=== PATIENT | female | born 1940 | race Caucasian/White ===

== ENCOUNTER 2021-04-03 13:23 | Emergency (ER) | payer MEDICARE ==
[~2021-04-03] VITALS: Ht 157.5 cm; Wt 62.8 kg
[2021-04-03] MEDS ORDERED: MORPHINE SULFATE 4 MG/ML INJ. IV/SQ PRN (14:00)
[2021-04-03] MEDS ORDERED: IV NORMAL SALINE 1000ML BAG 1,000 ML IV SCH (14:00)
--- NOTE | 2021-04-03 14:12 | PHYS DOC ---
General Adult EDM: Chief Complaint: MECHANICAL FALL HPI: HPI: Patient is a 80-year-old female who presents after syncopal episode at home. Patient states that she was using a push mower to mow her grass. Patient states that she started to feel tired so she started to walk into the house to rest. Patient states she was trying to open up her garage door and the next thing she remembers she woke up next to her garage. Patient has an abrasion to the right side of her forehead, right cheek, and also complaining of right-sided chest wall pain. Chest wall pain is worse with sitting up. Denies pain on inspiration. Patient states that she has had episodes of dizziness in the past but never had a syncopal episode. Denies chest pain, shortness of breath, dizziness. Denies back or neck pain. Patient's only medical history is hypertension. Unknown last tetanus. Patient is fully vaccinated for COVID-19. Review of Systems: Review of Systems: ROS At least 10 ROS systems have been reviewed and are negative except as documented in the HPI. General: Negative except as outlined in HPI above. Skin: Negative except as outlined in HPI above. HEENT: Negative except as outlined in HPI above. Neck: Negative except as outlined in HPI above. Respiratory: Negative except as outlined in HPI above.. Cardiovascular: Negative except as outlined in HPI above. Abdomen: Negative except as outlined in HPI above. : Negative except as outlined in HPI above. Back/MSK: Negative except as outlined in HPI above. Neuro: Negative except as outlined in HPI above. Psych: Negative except as outlined in HPI above. Heart Score: C/O Chest Pain: No Risk Factors: Risk Factors: DM, Current or recent (<one month) smoker, HTN, HLP, family history of CAD, obesity. Risk Scores: Score 0 - 3: 2.5% MACE over next 6 weeks - Discharge Home Score 4 - 6: 20.3% MACE over next 6 weeks - Admit for Clinical Observation Score 7 - 10: 72.7% MACE over next 6 weeks - Early Invasive Strategies Current Medications: Current Medications Medications (Trade) Dose Ordered Sig/Han Start Time Stop Time Status Last Admin Dose Admin Sodium Chloride 1,000 ml @ 1,000 mls/hr Q1H 04/03/21 14:00 04/03/21 14:59 UNV Physical Exam: PE: Constitutional: Well developed, well nourished, no acute distress, non-toxic appearance. [] HENT: Normocephalic, atraumatic, bilateral external ears normal, oropharynx moist, no oral exudates, nose normal. [] Eyes: PERRLA, EOMI, conjunctiva normal, no discharge. [] Neck: Normal range of motion, no tenderness, supple, no stridor. [] Cardiovascular:Heart rate regular rhythm, no murmur [] Lungs & Thorax: Bilateral breath sounds clear to auscultation [] Abdomen: Bowel sounds normal, soft, no tenderness, no masses, no pulsatile masses. [] Skin: Small abrasion to right forehead, right cheek Back: No tenderness, no CVA tenderness. [] Extremities: No tenderness, no cyanosis, no clubbing, ROM intact, no edema. [] Neurologic: Alert and oriented X 3, normal motor function, normal sensory function, no focal deficits noted. [] Psychologic: Affect normal, judgement normal, mood normal. [] EKG: EKG: Sinus rhythm. Heart rate 81 bpm. No STEMI. Read by Dr. Duong at 1344. [] Radiology/Procedures: Radiology/Procedures: []STUDY: CT head and cervical spine without contrast INDICATION: Syncope. Right-sided rib pain. COMPARISON: None. TECHNIQUE: Axial CT imaging through the head and cervical spine without the use of intravenous contrast. Sagittal and coronal reformats were obtained. One or more of the following individualized dose reduction techniques were utilized for this examination: 1. Automated exposure control 2. Adjustment of the mA and/or kV according to patient size 3. Use of iterative reconstruction technique. FINDINGS: CT head: No acute intracranial hemorrhage. No localized mass effect, midline shift or hydrocephalus. Coley-white matter differentiation is maintained. Patchy hypoattenuation within the bihemispheric subcortical/periventricular white matter which is nonspecific but most frequently related to chronic microvascular ischemic change. Brain volume is within normal limits considering patient age. No depressed calvarial fracture. Normally aerated mastoid air cells and partially imaged paranasal sinuses. CT cervical spine: Osteopenia. No acute fracture or traumatic malalignment. Multilevel, multifactorial spondylosis on a background of straightening of cervical lordosis and mild reversal centered at C4. Mild to moderate osseous neural foraminal stenosis greatest on the right at C4-C5. Central canal stenosis favored greatest at C5-C6 and estimated at moderate in severity. No paraspinous hematoma. Unremarkable thyroid. Mild scattered calcific atherosclerosis. No apical pneumothorax. IMPRESSION: CT head: 1. No acute intracranial abnormality by CT. 2. Chronic/senescent observations detailed above. CT cervical spine: 1. No acute fracture or traumatic malalignment. 2. Multifactorial spondylosis collectively greatest at C4-C5 and C5-C6, as above. T scan of the chest, abdomen and pelvis with contrast 04/03/2021 CLINICAL HISTORY: Syncopal episode. Fall. Right-sided chest and abdominal pain. TECHNIQUE: After the intravenous administration of 75 cc of Omnipaque 300 only , contiguous, 5 mm axial sections were obtained through the chest, abdomen and pelvis. One or more of the following individualized dose reduction techniques were utilized for this study: 1. Automated exposure control. 2. Adjustment of the mA and/or kV according to patient size. 3. Use of iterative reconstruction technique. FINDINGS: The heart is mildly enlarged. Atherosclerotic calcification of the thoracic aorta is seen. The thoracic aorta is mildly tortuous but tapers normally. Minimal dependent subsegmental atelectasis is seen involving both lungs. A 2.6 cm bulla is seen involving the medial aspect of the right lower lobe. No area of consolidation is seen. No pneumothorax or pleural effusion is noted. The liver parenchyma has a decreased attenuation consistent with fatty infiltr ation. No focal abnormality of liver is seen. The spleen, pancreas, adrenal glands and kidneys are within normal limits. Atherosclerotic calcification abdominal aorta is seen. The abdominal aorta tapers normally. The gallbladder is well-distended. No free fluid or free air is seen within the abdomen. There is no evidence of bowel obstruction. The appendix is well-visualized and is within normal limits. Images through the pelvis demonstrate the urinary bladder distended with urine. Multiple diverticula are seen involving the sigmoid colon. No inflammatory changes are seen adjacent fat. No free fluid is seen. No pelvic hematoma is n oted. Mild S-shaped curvature of the thoracolumbar spine is seen. Degenerative changes are seen involving the thoracic and lumbar spine along with both shoulders, SI joints and both hips. The osseous structures are intact. IMPRESSION: No acute abnormality is seen. Electronically signed by: Alen Rivera MD (04/03/2021 4:46 PM) [id number] Course & Med Decision Making: Course & Med Decision Making Pertinent Labs and Imaging studies reviewed. (See chart for details) [] 80-year-old female presents after syncopal episode at home. CT head and neck ordered to rule out intracranial bleeding or fracture. Patient was reporting right sided, chest wall pain. CT of chest abdomen and pelvis ordered. Tetanus was updated in the emergency room. Imaging of CT head neck, and CT chest, abdomen, pelvis are all unremarkable. UA is negative for infection. Serial troponins are negative. Discussed results with patient and daughter. Advised patient she would probably be sore from falling. Patient also been reporting nausea while in the ER. Patient's nausea was treated. Sending patient home with medication to help with symptoms. Patient reports that nausea has improved after medication given. Advised patient to call PCP in the morning and make a follow-up appointment. Discussed return precautions in length. Dragon Disclaimer: Glenda Disclaimer: This electronic medical record was generated, in whole or in part, using a voice recognition dictation system. Departure Departure Impression: Primary Impression: Fall Qualified Codes: W19.XXXA - Unspecified fall, initial encounter Additional Impression: Syncope Qualified Codes: R55 - Syncope and collapse Disposition: 01 HOME / SELF CARE / HOMELESS Condition: STABLE Patient Instructions: Syncope, [id number] Additional Instructions: You were seen in the emergency room after a syncopal episode at home today. We performed a CT of your head and neck which was unremarkable. You were complaining of some right, chest wall pain. We performed a CT of your chest abdomen and pelvis which were all unremarkable as well. All of your labs were unremarkable. Your white count was slightly elevated but that can be due to stress, like we discussed. You need to call PCP in the morning and make a follow-up appointment for further management and possible testing. Return to the emergency room if you have worsening symptoms or concerns. EMERGENCY DEPARTMENT GENERAL DISCHARGE INSTRUCTIONS Thank you for coming to [facility] Emergency Department (ED) to day and trusting us with you care. We trust that you had a positive experience in our Emergency Department. If you wish to speak to the department management, you may call the Director at [phone]. YOUR FOLLOW UP INSTRUCTIONS ARE FOLLOWS: 1. Do you have a private Doctor? If you do not have a private doctor, please ask for a resource list of physicians or clinics that may be able to assist you with follow up care. 2. The Emergency Physicain has interpreted your x-rays. The X-Ray specialist will also review them. If there is a change in the findings, you will be notified in 48 hours when at all possible. 3. A lab test or culture has been done, your results will be reviewed and you will be notified if you need a change in treatment. ADDITIONAL INSTRUCTIONS AND INFORMATION: 1. Your care today has been supervised by a physician who is specially trained in emergency care. Many problems require more than one evaluation for a complete diagnosis and treatment. We recommend that you schedule your follow up appointment as recommended to ensure complete treatment of you illness or injury. If you are unable to obtain follow up care and continue to have a problem, or if your condition worsens, we recommend that you return to the ED. 2. We are not able to safely determine your condition over the phone nor are we able to give sound medical advice over the phone. For these safety reasons, if you call for medical advice we will ask you to come to the ED for further evaluation. 3. If you have any questions regarding these discharge instructions please call the ED at [phone]. SAFETY INFORMATION: In the interest of safety, wellness, and injury prevention; we encourage you to wear your sealbelt, if you smoke; quite smoking, and we encourage family to use a protective helmet for bicycling and other sporting events that present an increased risk for head injury. IF YOUR SYMPTOMS WORSEN OR NEW SYMPTOMS DEVELOP, OR YOU HAVE CONCERNS ABOUT YOUR CONDITION; OR IF YOUR CONDITION WORSENS WHILE YOU ARE WAITING FOR YOUR FOLLOW UP APPOINTMENT; EITHER CONTACT YOUR PRIMARY CARE DOCTOR, THE PHYSICIAN WHOSE NAME AND NUMBER YOU WERE GIVEN, OR RETURN TO THE ED IMMEDIATELY. Scripts Baclofen (BACLOFEN) 10 Mg Tablet 1 TAB PO TID for muscle pain for 7 Days, #21 TAB 2 Refills Prov: TIMUR DRUMMOND APRN 04/03/21 Ondansetron (ONDANSETRON ODT) 4 Mg Tab.rapdis 1 TAB PO PRN Q6-8HRS PRN for NAUSEA/VOMITING for 4 Days, #16 TAB 0 Refills Prov: TIMUR DRUMMOND APRN 04/03/21 TIMUR DRUMMOND APRN Apr 03, 2021 14:12
[2021-04-03] MEDS ORDERED: DIPH,PERTUSS(ACELL),TET VAC/PF 0.5 ML SYRINGE. VAX IM ONE (14:15)
[2021-04-03 14:23] LABS: BASO % 0 % (0-3); EOS % 0 % (0-3); HEMATOCRIT 40.6 % (36.0-47.0); HEMOGLOBIN 13.8 g/dL (12.0-15.5); LYMPH % 5 % (24-48); MEAN CORPUSCULAR HEMOGLOBIN 30 pg (25-35); MEAN CORPUSCULAR HGB CONC 34 g/dL (31-37); MEAN CORPUSCULAR VOLUME 89 fL (79-100); MONO # 1.3 x10^3/uL (0.0-1.1); MONO % 7 % (0-9); NEUT # 15.7 x10^3/uL (1.8-7.7); NEUT % 87 % (31-73); PLATELET COUNT 248 x10^3/uL (140-400); RED BLOOD COUNT 4.54 x10^6/uL (3.50-5.40); RED CELL DISTRIBUTION WIDTH 12.9 % (11.5-14.5)
[2021-04-03 14:33] LABS: CALCIUM 9.5 mg/dL (8.5-10.1); CREATININE 0.9 mg/dL (0.6-1.0); GFR 60.2; POTASSIUM 3.7 mmol/L (3.5-5.1)
[2021-04-03 14:38] LABS: ALBUMIN 3.7 g/dL (3.4-5.0); ALBUMIN/GLOBULIN RATIO 1.1 (1.0-1.7); MAGNESIUM 1.8 mg/dL (1.8-2.4); TOTAL BILIRUBIN 0.5 mg/dL (0.2-1.0)
--- NOTE | 2021-04-03 14:59 | EKG ---
[facility] [address] [place] [address] Test Date: 2021-04-03 Test Time: 13:43:13 Pat Name: JOCELYNE BOYLELLOR Department: Room: Gender: F Pad Hand: : 1940 Requested By: TIMUR DRUMMOND Order Number: [id number] Reading MD: Silverio Lazo MD Measurements Intervals Schwertner Rate: 81 P: 90 WA: 158 QRS: 14 QRSD: 92 T: 17 QT: 384 QTc: 452 Interpretive Statements SINUS RHYTHM LAE NON-SPECIFIC ST/T CHANGES Electronically Signed On 04-04-2021 9:21:13 [employer]STIGATOR by Silverio Lazo MD
[2021-04-03] MEDS ORDERED: IOHEXOL 300 MG/ML 100ML VIAL. IV ONE (15:00)
[2021-04-03] MEDS ORDERED: ONDANSETRON PF 4 MG/2 ML VIAL. IVP ONE (15:15)
[2021-04-03] MEDS ORDERED: CONTRAST GIVEN. MC PRN (15:15)
[2021-04-03 15:16] LABS: % BANDS 8 % (0-9); % LYMPHS 5 % (24-48); % MONOS 5 % (0-10); % SEGS 82 % (35-66); PLT ESTIMATE ADEQUATE (ADEQUATE)
--- NOTE | 2021-04-03 15:20 | RAD ---
STUDY: CT head and cervical spine without contrast INDICATION: Syncope. Right-sided rib pain. COMPARISON: None. TECHNIQUE: Axial CT imaging through the head and cervical spine without the use of intravenous contra st. Sagittal and coronal reformats were obtained. One or more of the following individualized dose reduction techniques were utilized for this examinat ion: 1. Automated exposure control 2. Adjustment of the mA and/or kV according to patient size 3. Use of iterative reconstruction technique. FINDINGS: CT head: No acute intracranial hemorrhage. No localized mass effect, midline shift or hydrocephalus. Coley-whit e matter differentiation is maintained. Patchy hypoattenuation within the bihemispheric subcortical/periventricular white matter which is non specific but most frequently related to chronic microvascular ischemic change. Brain volume is within normal limits considering patient age. No depressed calvarial fracture. Normally aerated mastoid air cells and partially imaged paranasal si nuses. CT cervical spine: Osteopenia. No acute fracture or traumatic malalignment. Multilevel, multifactorial spondylosis on a background of straightening of cervical lordosis and mild reversal centered at C4. Mild to moderate osseous neural foraminal stenosis greatest on the right at C4-C5. Central canal stenosis favored greatest at C5-C6 and estimated at moderate in severity. No paraspinous hematoma. Unremarkable thyroid. Mild scattered calcific atherosclerosis. No apical pne umothorax. IMPRESSION: CT head: 1. No acute intracranial abnormality by CT. 2. Chronic/senescent observations detailed above. CT cervical spine: 1. No acute fracture or traumatic malalignment. 2. Multifactorial spondylosis collectively greatest at C4-C5 and C5-C6, as above. Electronically signed by: SOCRATES HERRMANN MD (04/03/2021 3:17 PM) [facility] [place]
--- NOTE | 2021-04-03 16:48 | RAD ---
CT scan of the chest, abdomen and pelvis with contrast 04/03/2021 CLINICAL HISTORY: Syncopal episode. Fall. Right-sided chest and abdominal pain. TECHNIQUE: After the intravenous administration of 75 cc of Omnipaque 300 only , contiguous, 5 mm axi al sections were obtained through the chest, abdomen and pelvis. One or more of the following individualized dose reduction techniques were utilized for this study: 1. Automated exposure control. 2. Adjustment of the mA and/or kV according to patient size. 3. Use of iterative reconstruction technique. FINDINGS: The heart is mildly enlarged. Atherosclerotic calcification of the thoracic aorta is seen. The thoracic aorta is mildly tortuous but tapers normally. Minimal dependent subsegmental atelectasis is seen involving both lungs. A 2.6 cm bulla is seen invol ving the medial aspect of the right lower lobe. No area of consolidation is seen. No pneumothorax or pleural effusion is noted. The liver parenchyma has a decreased attenuation consistent with fatty infiltration. No focal abnorma lity of liver is seen. The spleen, pancreas, adrenal glands and kidneys are within normal limits. Atherosclerotic calcification abdominal aorta is seen. The abdominal aorta tapers normally. The gallb ladder is well-distended. No free fluid or free air is seen within the abdomen. There is no evidence of bowel obstruction. The appendix is well-visualized and is within normal limits. Images through the pelvis demonstrate the urinary bladder distended with urine. Multiple diverticula are seen involving the sigmoid colon. No inflammatory changes are seen adjacent fat. No free fluid is seen. No pelvic hematoma is noted. Mild S-shaped curvature of the thoracolumbar spine is seen. Degenerative changes are seen involving t he thoracic and lumbar spine along with both shoulders, SI joints and both hips. The osseous structur es are intact. IMPRESSION: No acute abnormality is seen. Electronically signed by: Alen Rivera MD (04/03/2021 4:46 PM) [id number]
[2021-04-03 17:13] LABS: BILIRUBIN,URINE NEGATIVE (NEG); CLARITY,URINE CLOUDY; COLOR,URINE YELLOW; NITRITE,URINE NEGATIVE (NEG); PROTEIN,URINE NEGATIVE (NEG-TRACE); UROBILINOGEN,URINE 0.2 mg/dL (0.2 mg/dL)
[2021-04-03 17:27] LABS: BACTERIA,URINE MODERATE /HPF (0-FEW)
[2021-04-03] MEDS ORDERED: ONDA4TAB12 PO (18:01)
[2021-04-03] MEDS ORDERED: BACL10TA PO (18:11)
[2021-04-03 18:15] VITALS: BP 153/73
== END 2021-04-03 18:44 | disposition home or self-care (01) ==
LOC: ER 13:23
DX: S00.81XA Abrasion of other part of head, initial encounter (principal); R55 Syncope and collapse; R07.89 Other chest pain; W18.39XA Other fall on same level, initial encounter; Y93.89 Activity, other specified; Y92.89 Other specified places as the place of occurrence of the external cause; Y99.8 Other external cause status
CPT/HCPCS: 36415; 70450; 71260; 72125; 74177; 80053; 81001; 83735; 83880; 84484; 85007; 85025; 87086; 90471; 90715; 93005; 96361; 96374; 99285; J2270; J2405; J7030; Q9967